=== PATIENT | male | born 1980 | race Caucasian/White ===

== ENCOUNTER 2020-11-29 20:14 | Emergency (ER) | payer MEDICAID ==
[~2020-11-29] VITALS: Ht 175.3 cm; Wt 78.0 kg
[2020-11-29] MEDS ORDERED: ONDANSETRON 4MG ODT PO STA (22:32)
[2020-11-30 01:26] LABS: BASOPHILS % 0.3 % (0.0-2.0); EOSINOPHILS % 0.1 % (0.0-5.0); HEMATOCRIT. 49.2 % (42.0-52.0); HEMOGLOBIN. 16.3 g/dL (14.0-18.0); LYMPHOCYTES % 8.5 % (20.0-50.0); MEAN CORPUSCULAR HEMOGLOBIN 28.6 pg (28.0-32.0); MONOCYTES % 2.8 % (2.0-8.0); NEUTROPHILS % 88.3 % (40.0-76.0); PLATELET 362 x1000/uL (130-400); RED BLOOD CELL COUNT 5.72 mill/uL (4.7-6.1); RED CELL DISTRIBUTION WIDTH 14.6 % (11.6-14.6)
[2020-11-30 01:33] LABS: CHLORIDE 104 mEq/L (98-107)
[2020-11-30] MEDS ORDERED: ONDA4TAB5 MT (03:26)
[2020-11-30] MEDS ORDERED: MECL-217 MT (03:26)
[2020-11-30 03:46] VITALS: BP 128/80
== END 2020-11-30 03:53 | disposition home or self-care (01) ==
LOC: ER 20:14
DX: R11.2 Nausea with vomiting, unspecified (principal); R42 Dizziness and giddiness; R51.9 Headache, unspecified
CPT/HCPCS: 36415; 70450; 71045; 80053; 84484; 85025; 93005; 99285; Q0162